=== PATIENT | male | born 2000 ===

== ENCOUNTER → 2024-04-03 | Outpatient (REF) | payer BC ==
[2024-04-03 15:29] LABS: SEMEN APPEARANCE OPAQUE (OPAQUE); SEMEN VISCOSITY LIQUID (LIQUID); SPERM CONCENTRATION 215.3 M/ml (>=15.0); WBC CONCENTRATION >1 M/ml (<=1 M/ml)
== END ==
LOC: M LAB REF 15:16
PROVIDERS: ATTEND Obstetrics & Gynecology
DX: Z31.41 Encounter for fertility testing (principal)